=== PATIENT | male | born 1950 | race Caucasian/White ===

== ENCOUNTER → 2018-06-29 09:42 | Outpatient (CLI) | payer OTHER, SELFPAY ==
--- NOTE | 2018-06-29 | DI.MRI.S_ITS ---
PROCEDURE: MR HAND LT WO/W CON INDICATIONS: PRIMARY OSTEOARTHRITIS OF BOTH HANDS TECHNIQUE: Coronal and axial T1 spin echo and T2 fast spin echo with fat saturation. Post-contrast coronal and axial T1 spin echo with fat saturation images through the left hand and wrist. COMPARISON: [facility], CR, XR HAND 3+ VIEWS BILATERAL, 04/29/2018, 10:36. [facility], MR, MR HAND RT WO/W CON, 06/29/2018, 10:41. FINDINGS: Image quality: There is inhomogeneous fat saturation limiting evaluation. Bones and cartilage: There is apparent cystic change within the distal 1st metacarpal with associated internal enhancement compatible with a bone erosion. There is also cystic change likely representing erosion within the 3rd metacarpal head. Evaluation of the phalanges is limited T2 inhomogeneous fat saturation. There are erosive changes also demonstrated within the ulnar aspect of the corpus in the triquetrum, pisiform, and hamate as well as the distal ulna. There are cystic changes along the 1st carpometacarpal joint compatible with erosions or degenerative cysts. Similar changes also noted at the 1st interphalangeal joint. There is narrowing of the remaining interphalangeal joints consistent with mild osteoarthritic changes. Synovium: There is mild para-articular soft tissue thickening with edema and enhancement along the ulnar aspect of the carpus compatible with synovitis. Milder changes also noted at the 1st metacarpal phalangeal joint. There is mild periarticular edema at the 1st carpometacarpal joint suggestive of osteoarthritic changes. Soft tissues: The visualized flexor and extensor tendons appear intact. No tenosynovial fluid collections. Visualized musculature demonstrates preserved signal. IMPRESSION: 1. Bony erosive changes demonstrated in the 1st and 3rd metacarpal heads as well as within the ulnar aspect of the carpus as described. Associated findings compatible with synovitis demonstrated along the ulnar aspect of the carpus and at the 1st metacarpophalangeal joint. 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 2. Joint space narrowing with osteophytosis and subchondral cystic changes at the 1st carpometacarpal joint likely represent moderate degenerative changes. However, this may also reflect an inflammatory arthropathy. 3. Mild osteoarthritic changes in the interphalangeal joints with possible inflammatory arthropathy involving the 1st interphalangeal joint. Dictated by: Nelson Alcaraz M.D. on 06/29/2018 at 16:24 Approved by: Nelson Alcaraz M.D. on 06/29/2018 at 16:32
--- NOTE | 2018-06-29 | DI.MRI.S_ITS ---
PROCEDURE: MR HAND RT WO/W CON INDICATIONS: PRIMARY OSTEOARTHRITIS OF BOTH HANDS TECHNIQUE: Coronal and axial T1 spin echo and T2 fast spin echo with fat saturation. Post-contrast coronal and axial T1 spin echo with fat saturation images through the right hand and wrist. COMPARISON: [facility], CR, XR HAND 3+ VIEWS BILATERAL, 04/29/2018, 10:36. FINDINGS: Image quality: Excellent. Bones and cartilage: Prominent marginal marrow signal changes present at the second and third MCP joints although there is less than expected enhancement for active process. There is also marrow signal changes involving the middle phalanx of the index finger as well as the proximal capitate. These demonstrate similar less than expected enhancement. There are first CMC and thumb interphalangeal marrow signal changes, as well as spurring. Synovium: There is probable reactive synovitis to first CMC joint degeneration. Elsewhere, no suspicious thickening or synovial enhancement Soft tissues: No pathological effusion. No evidence of tenosynovitis. There is a T2 hyperintense enhancing 4 x 6 mm nodule along the radial aspect of the flexor tendons of the little finger, image 29 series 5, image 11 series 3 IMPRESSION: Marrow signal changes involving the second and third MCP joints, in addition to the index finger middle phalanx (although somewhat distant from the joint). These are suspicious for erosions however less than expected enhancement seen for active process. These could represent chronic/burned out erosions. Please correlate clinically. Enhancing 4-6 mm nodule along the margin of the flexor tendon of the little finger. This finding is nonspecific and recommend correlation with exam findings and clinical followup/management. Elsewhere, no definite active synovitis. Dictated by: Alex Schmitz M.D. on 06/29/2018 at 12:50 Approved by: Alex Schmitz M.D. on 06/29/2018 at 13:01
== END ==
PROVIDERS: Visit Provider Internal Medicine Rheumatology
DX: M19.041 Primary osteoarthritis, right hand (principal); M19.042 Primary osteoarthritis, left hand; R22.31 Localized swelling, mass and lump, right upper limb
CPT/HCPCS: 73220; A9579